=== PATIENT | male | born 1990 | race Hispanic/Latino ===

== ENCOUNTER 2019-11-02 08:44 | Emergency (ER) | payer OTHER ==
[2019-11-02 09:11] LABS: APPEARANCE,URINE Clear (CLEAR); BILIRUBIN,URINE Negative (NEGATIVE); COLOR,URINE Yellow (YELLOW); GLUCOSE, URINE (UA) Negative (NEGATIVE); KETONES,URINE Negative (NEGATIVE); LEUKOCYTE ESTERASE ,URINE Negative (NEGATIVE); NITRATE,URINE Negative (NEGATIVE); OCCULT BLOOD,URINE Negative (NEGATIVE); PROTEIN,URINE Trace mg/dL (NEGATIVE)
[2019-11-02 09:12] LABS: BASOPHILS % (AUTO) 0.3 % (0.0-5.0); EOSINOPHILS % (AUTO) 0.2 % (0.0-8.0); HEMATOCRIT 42.5 % (42-54); LYMPHOCYTES % (AUTO) 16.2 % (21.0-51.0); MEAN CORPUSCULAR HEMOGLOBIN 28.4 pg (27.0-33.0); MEAN CORPUSCULAR HGB CONC 33.6 g/dL (32.0-36.0); MEAN CORPUSCULAR VOLUME 84.5 fL (79-99); MONOCYTES % (AUTO) 6.4 % (3.0-13.0); NEUTROPHILS % (AUTO) 76.6 % (40.0-77.0); PLATELET COUNT (AUTO) 321 K/uL (130-400); RED BLOOD CELL COUNT(AUTO) 5.03 MIL/uL (4.50-6.20); RED CELL DISTRIBUTION WIDTH 12.5 % (11.0-15.5)
[2019-11-02] MEDS ORDERED: KETOROLAC TROMETHAMINE 60 MG/2 ML VIAL ONE (09:18)
[2019-11-02 09:22] LABS: CREATININE 1.1 mg/dL (0.5-1.5); POTASSIUM 3.7 mmol/L (3.5-5.1)
[2019-11-02 09:28] LABS: ALBUMIN 3.9 g/dL (3.5-5.0); BILIRUBIN,TOTAL 0.6 mg/dL (0.2-1.0)
[2019-11-02 09:42] LABS: BACTERIA,URINE Rare /HPF (None Seen); RBC,URINE None Seen /HPF (0-1); SQUAMOUS EPITHELIAL CELL,UR Rare /HPF (0-2); WBC,URINE 0-1 /HPF (0-1)
[2019-11-02] MEDS ORDERED: CEFTRIAXONE SODIUM 500 MG VIAL ONE (10:15)
[2019-11-02] MEDS ORDERED: DOXYCYCLINE HYCLATE 100 MG TABLET PO ONE (10:15)
== END 2019-11-02 12:17 | disposition home or self-care (01) ==
LOC: EDH 08:44
DX: N45.1 Epididymitis (principal); Z98.890 Other specified postprocedural states; Z79.899 Other long term (current) drug therapy
CPT/HCPCS: 36415; 76870; 80053; 81001; 85025; 87486; 87797; 87804 ×2; 96372 ×2; 99285; J0696; J1885

== ENCOUNTER 2020-11-29 19:47 | Emergency (ER) | payer OTHER ==
[~2020-11-29 19:47] MED LIST: 0.9% SODIUM CHLORIDE 500 ML IV BAG IV ONE
[2020-11-29] MEDS ORDERED: TETRACAINE HCL 0.5% 4 ML OPHTH SOLN ONE (20:27)
[2020-11-29] MEDS ORDERED: FLUORESCEIN SODIUM 1 STRIP STRIP ONE (20:28)
[2020-11-29] MEDS ORDERED: TETANUS/DIPHTHERIA TOXOID [ADULT] 0.5 ML VIAL IM ONE (21:12)
== END 2020-11-29 21:46 | disposition home or self-care (01) ==
LOC: EDH 19:47
DX: T15.11XA Foreign body in conjunctival sac, right eye, initial encounter (principal); X58.XXXA Exposure to other specified factors, initial encounter; Y93.89 Activity, other specified; Y92.89 Other specified places as the place of occurrence of the external cause; Y99.8 Other external cause status
CPT/HCPCS: 65205; 90471; 90714; 99284; J7040

== ENCOUNTER 2022-08-26 16:06 | Emergency (ER) | payer OTHER ==
[~2022-08-26] VITALS: Ht 162.6 cm; Wt 88.5 kg
[2022-08-26 16:12] VITALS: BP 114/85
[2022-08-26] MEDS ORDERED: L.E.T. GEL 3ML SYG TP ONE (16:53)
[2022-08-26] MEDS ORDERED: IBUPROFEN 800 MG TAB PO ONE (17:00)
[2022-08-26] MEDS ORDERED: IBUP-2071 PO (17:36)
== END 2022-08-26 17:53 | disposition home or self-care (01) ==
LOC: EDH 16:06
DX: S01.01XA Laceration without foreign body of scalp, initial encounter (principal); Z98.890 Other specified postprocedural states; W22.8XXA Striking against or struck by other objects, initial encounter; Y93.89 Activity, other specified; Y92.89 Other specified places as the place of occurrence of the external cause; Y99.8 Other external cause status
CPT/HCPCS: 12002

== ENCOUNTER → 2022-09-04 | Emergency (ER) | payer OTHER ==
[~2022-09-04] VITALS: Ht 162.6 cm; Wt 89.8 kg
[~2022-09-04] MED LIST changes: -0.9% SODIUM CHLORIDE 500 ML IV BAG IV ONE; +IBUP-2071 PO
[2022-09-04 18:28] VITALS: BP 122/62
== END | disposition home or self-care (01) ==
LOC: EDH 17:23
DX: S01.01XD Laceration without foreign body of scalp, subsequent encounter (principal); X58.XXXD Exposure to other specified factors, subsequent encounter
CPT/HCPCS: 99281

== ENCOUNTER 2023-10-31 10:30 | Emergency (ER) | payer OTHER ==
[~2023-10-31] VITALS: Ht 162.6 cm; Wt 89.8 kg
[2023-10-31] MEDS ORDERED: TETANUS/DIPHTHERIA TOXOID [ADULT] 0.5 ML VIAL IM ONE (12:30)
[2023-10-31] MEDS ORDERED: HYDROCODONE/ACETAMINOPHEN 5/325 MG TAB PO ONE (12:30)
[2023-10-31] MEDS ORDERED: ERYT1OIN7 OP (15:16)
[2023-10-31] MEDS ORDERED: ERYTHROMYCIN BASE 0.5% OPHTH OINT 1 GM TUBE OU SCH (15:30)
[2023-10-31 16:03] VITALS: BP 126/74; PULSE 74; RESP 18; O2SAT 98
== END 2023-10-31 15:56 | disposition home or self-care (01) ==
LOC: EDH 10:30
DX: T15.91XA Foreign body on external eye, part unspecified, right eye, initial encounter (principal)